=== PATIENT | female | born 1955 | race Caucasian/White ===

== ENCOUNTER 2019-08-02 13:14 | Emergency (ER) | payer MEDICARE ==
[~2019-08-02] VITALS: Ht 170.2 cm; Wt 76.8 kg
[2019-08-02] MEDS ORDERED: DOXY100C43 PO (15:12)
[2019-08-02] MEDS ORDERED: METH4TAB81 PO (15:12)
[2019-08-02] MEDS ORDERED: ALBU8.5H8 IH (15:12)
[2019-08-02 15:33] VITALS: BP 103/58
== END 2019-08-02 15:29 | disposition home or self-care (01) ==
LOC: ER 13:15
DX: J44.1 Chronic obstructive pulmonary disease with (acute) exacerbation (principal); Z79.899 Other long term (current) drug therapy; Z87.891 Personal history of nicotine dependence
CPT/HCPCS: 71045; 93005; 99283

== ENCOUNTER 2021-04-28 15:45 | Emergency (ER) | payer MEDICARE ==
[~2021-04-28] VITALS: Ht 172.7 cm; Wt 76.4 kg
[~2021-04-28 15:45] MED LIST: ALBU8.5H17 IH; METH4TAB81 PO
[2021-04-28 16:04] VITALS: BP 123/67
== END 2021-04-28 17:30 | disposition home or self-care (01) ==
LOC: ER 15:45
DX: U07.1 COVID-19 (principal); Z79.899 Other long term (current) drug therapy
CPT/HCPCS: 71045; 87635; 99284; C9803

== ENCOUNTER 2025-03-08 14:53 | Outpatient (CLI) | payer MEDICARE ==
--- NOTE | 2025-03-08 16:12 | RADIOLOGY REPORT ---
EXAM: DI KNEE LIMITED (AP/LAT) HISTORY: KNEE PAIN, BILATERAL KNEE PAIN COMPARISON: None TECHNIQUE: AP and lateral views of the left knee were performed. FINDINGS: No acute fracture is identified about the left knee. There are marginal osteophytes of the lateral co mpartment without significant joint space narrowing. There is chondrocalcinosis of the lateral menisc us. No evidence of significant joint effusion. IMPRESSION: 1. No acute fracture of the left knee. 2. Degenerative changes of the left knee lateral compartment and chondrocalcinosis of the lateral men iscus.
--- NOTE | 2025-03-08 16:27 | RADIOLOGY REPORT ---
CLINICAL INDICATION: BILATERAL HAND XRAY TECHNIQUE: 3 radiographic views of the left hand were obtained. Comparison: None FINDINGS/IMPRESSION: There is abnormal configuration of the mid scaphoid launch may be from injury of unknown chronicity. Recommend correlation with point tenderness to exclude and acute fracture. Otherwise, no evidence o f acute traumatic fractures or dislocations [id number] degenerative changes of 1st carpometacarpal joint. The alignment is anatomical. There is no radiopaque foreign body.
--- NOTE | 2025-03-08 16:29 | RADIOLOGY REPORT ---
CLINICAL INDICATION: BILATERAL HAND XRAY TECHNIQUE: 3 radiographic views of the right hand were obtained. Comparison: None FINDINGS/IMPRESSION: There is no evidence of acute fracture or dislocation. Abnormal configuration of the mid scaphoid fro ntal view which may be positional with normal appearance of the scaphoid on the lateral and oblique v iews. The visualized joint space is well maintained. The alignment is anatomical. There is no radiopaque foreign body.
--- NOTE | 2025-03-08 16:30 | RADIOLOGY REPORT ---
EXAM: DI KNEE LIMITED (AP/LAT) HISTORY: BILATERAL KNEE PAIN - STANDING FILMS COMPARISON: None TECHNIQUE: AP and lateral views of the left knee were performed. FINDINGS: No acute fracture is identified about the left knee. No significant joint space narrowing. There is c hondrocalcinosis of the medial and lateral menisci. No evidence of joint effusion. IMPRESSION: 1. No fracture of the left knee. 2. Chondrocalcinosis of both menisci.
== END 2025-03-08 23:59 | disposition home or self-care (01) ==
LOC: RAD 14:53
PROVIDERS: ATTEND Internal Medicine
DX: M18.12 Unilateral primary osteoarthritis of first carpometacarpal joint, left hand (principal); M17.0 Bilateral primary osteoarthritis of knee; M25.561 Pain in right knee; M94.261 Chondromalacia, right knee
CPT/HCPCS: 73130; 73560